=== PATIENT | female | born 1965 | race Caucasian/White ===

== ENCOUNTER → 2018-05-21 | Outpatient (CLI) | payer SELFPAY ==
--- NOTE | 2018-05-21 16:07 | KCIC ---
EXAM: Lumbar spine, 3 views. HISTORY: Pain. COMPARISON: None. FINDINGS: Frontal, lateral and coned sacral views of the lumbar spine are obtained. There is lumbar levocurvature. There is no listhesis. The vertebral bodies are normal in height. There is endplate remodeling at the upper and mid lumbar levels and there is facet arthropathy predominantly at the lower lumbar levels. IMPRESSION: 1. Mild multilevel degenerative change. 2. No acute osseous finding. 3. Mild lumbar levoscoliosis. Electronically signed by: Carlota Garcia MD (05/21/2018 4:03 PM) [place] [id number]
== END | disposition home or self-care (01) ==
LOC: KCIC 15:33
DX: M47.896 Other spondylosis, lumbar region (principal)
CPT/HCPCS: 72100